=== PATIENT | male | born 1995 | race Caucasian/White ===

== ENCOUNTER 2021-09-22 14:54 | Emergency (ER) | payer BC, SELFPAY ==
[2021-09-22 15:03] VITALS: BP 131/81; PULSE 85; RESP 16; TEMP 37; O2SAT 99; BMI 21.7
--- NOTE | 2021-09-22 15:30 | XR_ITS ---
WS: [id number] Right foot, 3 views, 09/22/2021 Clinical Data: injury Comparison: Right foot, 11/27/2013. Findings: No new fractures or dislocations are seen. No bone destruction or erosion is noted. The joint spaces and soft tissues are normal. There are fragments adjacent to the head of the right fourth metatarsal which shows a healed fracture . XR/XR foot RT min 3V* 41197 Impression: 1. Negative for new fracture or dislocation. 2. Healed fracture of the distal right fourth metatarsal with adjacent fragment s.
--- NOTE | 2021-09-22 15:30 | XR_ITS ---
WS: [id number] Right ankle, 3 views, 09/22/2021 Clinical Data: injury Comparison: None. Findings: No fractures or dislocations are seen. The ankle mortise is normal. The talus and calcaneus are unrem arkable. No soft tissue swelling over the medial or lateral malleolus is seen. XR/XR ankle RT min 3V* 68154 Impression: Negative right ankle.
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
[2021-09-22 15:54] VITALS: BP 131/81; PULSE 85; RESP 16; O2SAT 99
== END 2021-09-22 16:25 | disposition home or self-care (01) ==
PROVIDERS: Emergency Provider Physician Assistant; PCP Family Medicine
DX: S93.401A Sprain of unspecified ligament of right ankle, initial encounter (principal); X50.1XXA Overexertion from prolonged static or awkward postures, initial encounter
CPT/HCPCS: 73610; 73630; 99283; E0114

== ENCOUNTER 2021-10-26 08:08 | Emergency (ER) | payer BC, SELFPAY ==
[2021-10-26 08:17] VITALS: BP 115/84; PULSE 86; RESP 15; TEMP 36.9; O2SAT 98; BMI 22.4
--- NOTE | 2021-10-26 08:32 | XR_ITS ---
WS: [id number] XR nasal bones min 3V 35411 REASON FOR EXAM: trauma FINDINGS: Nondisplaced fracture of distal most superior nasal spine. Inferior nasal spine appears fragmented. This may not be an acute injury. Clinical Correlation to be made. XR/XR nasal bones min 3V 17041 IMPRESSION: Superior nasal spine fracture as above. Abnormality of the inferior nasal spine as above.
--- NOTE | 2021-10-26 08:33 | CT_ITS ---
WS: [id number] CT HEAD TECHNIQUE: Noncontrast CT of the head obtained from the skullbase to the vertex. CLINICAL INFORMATION: closed head injury COMPARISON: None. DLP: 892.[address] scans at [facility] use at least one of these dose optimization techniques: automated e xposure control; mA and/or kV adjustment per patient size (includes targeted exams where dose is matc hed to clinical indication); or iterative reconstruction. FINDINGS: No evidence of intracranial hemorrhage or mass effect. Ventricular system and basal cisterns are dunaway nt. No extra-axial fluid collections. No evidence of mass or mass effect. Normal arriola-white different iation. Mild mucosal thickening ethmoid air cells. CT/CT head wo con* 41115 IMPRESSION: 1. No evidence of intracranial hemorrhage or mass effect. 2. No acute intracranial findings.
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
[2021-10-26 08:36] VITALS: BP 115/84; PULSE 86; RESP 15; TEMP 36.9; O2SAT 98
[2021-10-26 09:50] VITALS: BP 123/86; PULSE 79; RESP 16; O2SAT 99
== END 2021-10-26 09:38 | disposition home or self-care (01) ==
PROVIDERS: Emergency Provider Family Medicine; PCP Family Medicine
DX: S09.8XXA Other specified injuries of head, initial encounter (principal); S02.2XXA Fracture of nasal bones, initial encounter for closed fracture; H53.411 Scotoma involving central area, right eye; Y04.8XXA Assault by other bodily force, initial encounter
CPT/HCPCS: 70160; 70450; 99283

== ENCOUNTER 2024-07-16 06:00 | Outpatient (CLI) | payer OTHER, BC, SELFPAY | END 2024-07-16 06:01 | disposition home or self-care (01) | LOC: RAD 07-17 06:43 | PROVIDERS: PCP Family Medicine; Visit Provider Clinical Nurse Specialist Adult Health | DX: M79.675 Pain in left toe(s) (principal) | CPT/HCPCS: 84550 ==

== ENCOUNTER 2025-10-27 11:05 | Emergency (ER) | payer OTHER, SELFPAY ==
--- NOTE | 2025-10-27 11:06 | XRR_ITS ---
PROCEDURE INFORMATION: Exam: XR Chest Exam date and time: 10/27/2025 11:29 AM Age: 30 years old Clinical indication: Pain; Angina pectoris; Additional info: Cp TECHNIQUE: Imaging protocol: Radiologic exam of the chest. Views: 1 view. COMPARISON: No relevant prior studies available. FINDINGS: Lungs: Unremarkable. No consolidation. Pleural spaces: Unremarkable. No pleural effusion. No pneumothorax. Heart/Mediastinum: Unremarkable. No cardiomegaly. Bones/joints: Unremarkable. XR/XR chest 1V portable [id number] IMPRESSION: No acute findings.
--- NOTE | 2025-10-27 11:06 | ECG_ITS ---
[facility] Test Date: 2025-10-27 Pat Name: Ambrose Salgado Department: Room: Gender: Male Mission Planner: : 1995 Requested By: Osei Copeland Order Number: [id number] Ying MD: Rhiannon Bui M.D. Measurements Intervals [place] Rate: 88 P: 77 CT: 144 QRS: 74 QRSD: 89 T: 54 QT: 345 QTc: 418 Interpretive Statements SINUS RHYTHM NONSPECIFIC T-WAVE ABNORMALITY Compared to ECG 10/21/2017 00:41:52 Sinus tachycardia no longer present T-wave abnormality still present Electronically Signed On 10-27-2025 21:22:52 SNOW PLOW OPERATOR by Rhiannon Bui M.D. [id number]
[2025-10-27 11:07] VITALS: BP 156/102; PULSE 83; RESP 15; TEMP 36.4; O2SAT 98; BMI 22.4
--- NOTE | 2025-10-27 11:24 | W.ED.CHESTPA ---
HPI - Chest Pain General: Chief Complaint: Chest Pain Stated Complaint: cp Time Seen by Provider: 10/27/25 11:17 Source: patient Mode of arrival: ambulatory Limitations: no limitations History of Present Illness: 30-year-old male states he been having left-sided chest pain over the last week. States been a sharp pain radiates to his neck. States he had some mild dyspnea denies any fevers. States pain is currently 2 out of 10 denies any worse or improving factors. Denies any injuries. Related Data Home Medications ?Medication ?Instructions ?Recorded ?Confirmed omeprazole 40 mg capsule,delayed 40 mg PO DAILY 09/17/24 09/17/24 release Previous Rx's ?Medication ?Instructions ?Recorded citalopram 10 mg tablet 10 mg PO DAILY #30 tabs 09/17/24 Allergies Allergy/AdvReac Type Severity Reaction Status Date / Time No Known Allergies Allergy Verified 07/16/24 13:11 Review of Systems Card: Reports: chest pain [facility] ED PFSH: Medical History GERD (gastroesophageal reflux disease) Surgical History H/O right inguinal hernia repair Social History Smoking and tobacco/nicotine status: former use of tobacco/nicotine (quit 2022) Quit status (tobacco/nicotine): has quit using Former quit date comment: Quit vaping - did it for about a month Alcohol intake: current Alcohol intake frequency: few times a month Substance/Drug Use: current Physical Exam Const: COMMON NORMALS: no acute distress, patient oriented x3 and healthy appearing HENMT: COMMON NORMALS: normocephalic and atraumatic HEAD & SCALP: normocephalic and atraumatic Neck/C-Spine: COMMON NORMALS: full ROM and supple Chest: COMMONS NORMALS: normal inspection of the chest and normal palpation of entire chest wall Resp: COMMON NORMALS: normal respiratory effort, No retractions, No use of accessory muscles and clear to auscultation bilaterally AUSCULTATION: clear to auscultation bilaterally Cardio: COMMON NORMALS: regular rate, regular rhythm and No murmurs present (Cardio) RATE: regular rate RHYTHM: regular rhythm GI: COMMON NORMALS: Normal to inspection, nondistended, normoactive bowel sounds present, Soft to palpation, non-tender and no masses PALPATION: Yes Soft to palpation Extremity: COMMON NORMALS: normal to inspection and full ROM Neuro: COMMON NORMALS: patient oriented x3, moves all extremities and no focal motor deficits Psych: COMMON NORMALS: mental status grossly normal, Normal thought process present and cooperative THOUGHT PROCESS: Normal thought process present Skin: COMMON NORMALS: no rashes or lesions noted and no wounds GENERAL SKIN EXAM: no rashes or lesions noted Course Vital Signs: Vital signs: Vital Signs Temperature 97.5 F L 10/27/25 11:07 Pulse Rate 83 10/27/25 11:36 Respiratory Rate 15 10/27/25 11:07 Blood Pressure 156/98 10/27/25 11:36 Pulse Oximetry 98 10/27/25 11:07 Oxygen Delivery Me thod Room Air 10/27/25 11:07 MDM - Chest Pain Medical Decision Making 30-year-old male presenting here with chest pain that been ongoing for 1 to 2 weeks. Differential includes pneumothorax, ACS, pulm emboli, aortic dissection. Chest x-ray here interpreted by me showed no acute findings his pain is very atypical in nature heart score is 0 D-dimer and troponin are both negative as well. He is stable for discharge at this time follow-up with PCP in 2 to 4 days I did go over all these findings with him he is return if worsening he understands and agrees to plan. EKG interpreted by me at 1121 normal sinus rhythm heart rate [address] elevation QRS 89 QTc 390 Medical Records I reviewed the patient's medical records. Lab Data I reviewed the patient's lab results. 10/27/25 11:29 10/27/25 11:29 Radiology Impressions Chest X-Ray 10/27/25 11:06 IMPRESSION: No acute findings. Laboratory Results WBC 6.95 10^3/uL (3.29-11.43) 10/27/25 11:29 RBC 5.53 10^6/uL (3.85-5.65) 10/27/25 11:29 Hgb 16.40 g/dL (11.27-16.99) 10/27/25 11:29 Hct 47.3 % (37-53) 10/27/25 11:29 MCV 85.5 fl (82-101) 10/27/25 11:29 MCH 29.7 pg (27-33) 10/27/25 11:29 MCHC 34.7 g/dL (30-55) 10/27/25 11:29 RDW 12.4 % (12.1-15.1) 10/27/25 11:29 Plt Count 274 10^3/cmm (157-399) 10/27/25 11:29 MPV 9.0 fL (7.4-10.4) 10/27/25 11:29 Neut % (Auto) 63.5 % 10/27/25 11:29 Lymph % (Auto) 25.6 % 10/27/25 11:29 Placer % (Auto) 7.2 % 10/27/25 11:29 Eos % (Auto) 2.6 % 10/27/25 11:29 Baso % (Auto) 0.7 % 10/27/25 11:29 Neut # (Auto) 4.41 10^3/uL (1.8-7.7) 10/27/25 11:29 Lymph # (Auto) 1.8 10^3/uL (0.8-4.8) 10/27/25 11:29 Placer # (Auto) 0.5 10^3/uL (0.2-0.9) 10/27/25 11:29 Eos # (Auto) 0.2 10^3/uL (0.0-0.8) 10/27/25 11:29 Baso # (Auto) 0.1 10^3/uL (0.0-0.1) 10/27/25 11:29 Nucleated RBC % (auto) 0 % 10/27/25 11:29 Nucleated RBCs # 0.0 /100WBC 10/27/25 11:29 D-Dimer <= 0.27 ug/mLFEU (0-0.59) 10/27/25 11:29 Sodium 139 mmol/L (136-145) 10/27/25 11:29 Potassium 3.9 mmol/L (3.5-5.1) 10/27/25 11:29 Chloride 103 mmol/L (98-107) 10/27/25 11:29 Carbon Dioxide 24 mmol/L (22-29) 10/27/25 11:29 Anion Gap 15.9 (5-19) 10/27/25 11:29 BUN 13 mg/dL (6-20) 10/27/25 11:29 Creatinine 0.9 mg/dL (0.7-1.2) 10/27/25 11:29 GFR Calculation 99.8 mL/min (90-130) 10/27/25 11:29 Glucose 116 mg/dL (65-115) H 10/27/25 11:29 Calculated Osmolality 289 mOsm/kg (285-295) 10/27/25 11:29 Calcium 9.8 mg/dL (8.5-10.5) 10/27/25 11:29 Total Bilirubin 1.1 mg/dL (0.15-1.2) 10/27/25 11:29 AST 18 U/L (0-40) 10/27/25 11:29 ALT 16 U/L (0-41) 10/27/25 11:29 Alkaline Phosphatase 78 U/L (40-130) 10/27/25 11:29 Troponin T Baseline < 6 ng/L (0-15) 10/27/25 11:29 Total Protein 7.0 g/dL (6.6-8.7) 10/27/25 11:29 Albumin 5.0 g/dL (3.5-5.2) 10/27/25 11:29 Globulin 2.0 g/dL (1.3-4.6) 10/27/25 11:29 All radiology interpretation(s) finalized by discharge Discharge Plan Discharge Patient Disposition: Home Clinical Impression: Atypical chest pain Condition: Stable Prescriptions: No Action omeprazole 40 mg capsule,delayed release(DR/EC) 40 mg PO DAILY citalopram 10 mg tablet 10 mg PO DAILY Qty: 30 6RF Discharge Orders: Discharge ED (Routine); Ordered 10/27/25 Ordered By: Osei Copeland Referrals: Eugenio Gonzalez MD [Primary Care Provider, Family Practice] - 4-7 days Discharge Diet: Advance as tolerated Discharge Activity: Resume usual activity Patient Instructions: Chest Pain (ED) Print Language: Kiswahili Coding Level of Care Code ED Retail Management Keyholder for Chg Fwd Heart Score HEART Score Components History: Slightly Suspicous EKG: Normal Age: Less than 45 yrs Risk Factors: No Risk Factors Known Troponin: Baseline Trop <16 ng/L HEART Score RESULT HEART Score: 0
[2025-10-27 11:36] VITALS: BP 156/98; PULSE 83
[2025-10-27 11:43] LABS: Hematocrit 47.3 % (37-53); Hemoglobin 16.40 g/dL (11.27-16.99); Mean Corpuscular HGB Conc 34.7 g/dL (30-55); Mean Corpuscular Hemoglobin 29.7 pg (27-33); Mean Corpuscular Volume 85.5 fl (82-101); Nucleated Red Blood Cells % 0 %; Platelet Count 274 10^3/cmm (157-399); Red Blood Count 5.53 10^6/uL (3.85-5.65); White Blood Count 6.95 10^3/uL (3.29-11.43)
[2025-10-27 12:06] LABS: Alanine Aminotransferase 16 U/L (0-41); Albumin Level 5.0 g/dL (3.5-5.2); Alkaline Phosphatase 78 U/L (40-130); Anion Gap 15.9 (5-19); Aspartate Amino Transferase 18 U/L (0-40); Blood Urea Nitrogen 13 mg/dL (6-20); Calcium 9.8 mg/dL (8.5-10.5); Carbon Dioxide 24 mmol/L (22-29); Chloride 103 mmol/L (98-107); Globulin 2.0 g/dL (1.3-4.6); Glucose 116 mg/dL (65-115); Osmolality Calculated 289 mOsm/kg (285-295); Potassium 3.9 mmol/L (3.5-5.1); Sodium 139 mmol/L (136-145); Total Protein 7.0 g/dL (6.6-8.7); Troponin(5th) Baseline < 6 ng/L (0-15)
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
--- OUTSIDE RECORDS SUMMARY | 2025-10-27 12:22 | XMS_ITS | Clinical Summary ---
Author Organization [facility] Address [address] 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
== END 2025-10-27 12:24 | disposition home or self-care (01) ==
PROVIDERS: Emergency Provider Emergency Medicine; PCP Family Medicine
DX: R07.89 Other chest pain (principal); Z87.891 Personal history of nicotine dependence
CPT/HCPCS: 36415; 71045; 80053; 84484; 85025; 85378; 93005; 99285